=== PATIENT | male | born 1960 | race Caucasian/White ===

== ENCOUNTER 2016-04-27 07:30 | Day surgery (SDC) | payer OTHER ==
[~2016-04-27 07:30] MED LIST: HYDROmorphone HCL 2 MG/ML VIAL IV PRN; RINGERS SOLUTION,LACTATED 1,000 ML IV PRN
[2016-04-27] MEDS: RINGERS SOLUTION,LACTATED 1,000 ML IV ONE ×2 (08:06→10:35)
[2016-04-27] MEDS: ceFAZolin SODIUM 1 GM VIAL IV PRN (09:00)
[2016-04-27] MEDS: BUPIVACAINE HCL 50 ML VIAL IJ ONE (09:37)
--- NOTE | 2016-04-27 10:48 | OR ---
Operative Report - Dictated Report Narrative: Date: 04/27/2016 Surgeon: Avery Hernandez M.D. Automatic Chief: Joey Kraft PA-C Anesthesia: General plus local Preoperative diagnosis: Left closed medial malleolus nonunion Fracture. Postoperative diagnosis: Left closed medial malleolus nonunion Fracture. Procedure: 1. Open reduction internal fixation medial malleolus nonunion fracture. 2. Autologous calcaneal bone graft to nonunion site 3. Intra-operative interpretation of radiographs. Estimated blood loss: None Tourniquet time: 57 Minutes at 275 millimeters mercury Retained implants: [employer] 4.0 mm cannulated partially threaded cancellus screws in the medial malleolus x 54 mm 2 Specimens: None Complications: None Indications: Mr. Espinoza is a 55-year-old gentleman who injured his left ankle and proceeded to walk on this against our medical recommendation. We followed this over multiple weeks and noted progression of his fracture site as well as signs of nonunion with no progression of healing. We discussed options and he wished to proceed with bone grafting and open reduction internal fixation of the fracture. The risks, benefits, and treatment options were discussed with the patient. Risks were reviewed including , blood clots, nerve/tendon/blood vessel injury, malunion, nonunion, failure of implants, prominent implants, arthrosis, persistent pain, need for additional procedures. Procedure: After a timeout, anesthetic consisting of Ancef was administered. Beanbag was utilized in order bump the operative leg and a well-padded tourniquet was applied to the operative thigh. The leg was pre-scrubbed with chlorhexidine then prepped and draped in a standard sterile fashion. The extremity was exsanguinated and tourniquet was inflated. A curvilinear incision was made over the anterior medial aspect of the distal tibia. Care was taken to protect the saphenous vein and nerve. The medial malleolus fracture was identified and the soft tissues elevated off the bony edges. We then went to procure the calcaneal bone graft. A 1.5 cm incision was made over the posterior medial aspect of the calcaneus centered over the body of the calcaneal tuber. Soft tissues were elevated off the medial aspect of the calcaneus. A bone biopsy trephine was utilized in order to remove the medial cortex and the trephine was utilized as well as curved curettes in order to procure an appropriate amount of cancellus bone graft from the posterior aspect of the calcaneus. Once was felt that we had adequate bone graft we returned our attention to the medial malleolus. The nonunion site was cleaned of the scar tissue and it was noted there is periosteum within the fracture site. This was removed. The nonunion site was removed of the fibrous tissues and the calcaneal bone graft was impacted filling the defect. Two parallel guidewires were placed from the tip of the medial malleolus paralleling the anterior distal tibia within the confines of the distal tibial bone. These were measured, drilled, and sequentially tightened using 2 4.0 mm partially-threaded cancellus screws. This gave good stabilizations the medial malleolus fracture. The syndesmosis was stressed and was noted to be stable. The mortise was symmetrical and intact. The wounds were then thoroughly irrigated. Subcutaneous tissue was repaired over the implants utilizing 4-0 Vicryl. The skin was closed utilizing 4-0 nylon. Half percent Marcaine without epinephrine was infused around the saphenous vein the medial skin incision and the calcaneus wound. Xeroform, 4 x 4's, soft roll, and a well-padded AO splint was applied. Patient was then awoken and transferred to postanesthesia care in stable condition. All sponge, sharp, and instrument counts were correct prior to closing the wounds.
[2016-04-27] MEDS: oxyCODONE HCL/ACETAMINOPHEN 1 TAB TABLET PO PRN (12:09)
[2016-04-27 12:36] VITALS: BP 106/69
== END 2016-04-27 07:31 | disposition home or self-care (01) ==
LOC: AMB 07:30
PROVIDERS: ATTEND Orthopaedic Surgery
PROC: 0QSH04Z Reposition Left Tibia with Internal Fixation Device, Open Approach (ICD-10-PCS; principal; 2016-04-27 09:05)
DX: S82.52XK Displaced fracture of medial malleolus of left tibia, subsequent encounter for closed fracture with nonunion (principal); E11.9 Type 2 diabetes mellitus without complications; J44.9 Chronic obstructive pulmonary disease, unspecified; F17.200 Nicotine dependence, unspecified, uncomplicated; Z68.27 Body mass index [BMI] 27.0-27.9, adult

== ENCOUNTER 2016-04-28 14:36 | Emergency (ER) | payer OTHER ==
--- NOTE | 2016-04-28 15:11 | ERNOTE ---
Lower Extremity HPI - Narrative Date of Service: 04/28/16 - General Time Seen by Provider: 04/28/16 14:58 Source: patient, family Exam Limitations: no limitations - Immun/Allergies/Home Medications Immunizations: IMMUNIZATION HX History of Influenza Vaccine Yes Allergies/Adverse Reactions: Allergies Allergy/AdvReac Type Severity Reaction Status Date / Time No Known Allergies Allergy Verified 04/28/16 14:54 Home Medications: HOME MEDICATIONS Albuterol Sulfate [Ventolin Hfa] 2 puff IH Q4H PRN 08/05/15 [Last Taken Unknown] Tiotropium [place] [Spiriva] 1 cap IH DAILY 08/05/15 [Last Taken Unknown] Fluticasone/Salmeterol [Advair 100-50 Diskus] 1 puff IH BID 02/26/16 [Last Taken Unknown] Hydrocodone/Acetaminophen [Lortab 5-325 mg Tablet] 1 - 2 each PO TID PRN [Last Taken Unknown] oxyCODONE HCL/ACETAMINOPHEN [Percocet 5 MG/325 MG] 1 - 2 tab PO Q4H PRN #60 tab 04/27/16 [Last Taken Unknown] Cefuroxime Axetil [Ceftin] 500 mg PO BID #4 tab 04/28/16 [Last Taken Unknown] - History of Present Illness Narrative: Yesterday had two pins put into his ankle. Today, his foot smells bad and there is drainage on the back of his cast, so he thinks it is infected. No increase in pain and no fever. Occurred: this morning Method of Injury: Reports: other Associated Symptoms: Reports: none Subsequent Symptoms: Denies: sensory loss, numbness, motor loss Prior Treament: Reports: recently seen, treated by physician Review of Systems - Review of Systems Constitutional: Present: no symptoms reported EYE: Present: no symptoms reported ENT: Present: no symptoms reported Respiratory: Present: no symptoms reported Cardiology: Present: no symptoms reported Gastrointestinal/Abdominal: Present: no symptoms reported Genitourinary: Present: no symptoms reported Musculoskeletal: Present: See HPI Skin: Present: no symptoms reported Neurological: Present: no symptoms reported Endocrine: Present: no symptoms reported Hematologic/Lymphatic: Present: no symptoms reported Psych: Present: no symptoms reported All Other Systems: All systems neg except as marked - Patient's Past Medical History Patient History - Medical: Diabetes Type 2 Patient History - Cardiac/Respiratory: COPD Patient History - Cancer: No Hx of Cancer Patient History - Surgical Procedures: Cataracts, Other Patient History - Other: None - Family History Father Family History - Medical: , No pertinent hx Family History - Cardiac/Respiratory: No pertinent hx Family History - Cancer: No pertinent family hx Mother Family History - Medical: , No pertinent hx Family History - Cardiac/Respiratory: No pertinent hx Family History - Cancer: No pertinent family hx - Social History Living Situations: spouse Abuse History: No History of abuse Psych History: No pertinent hx Smoking Status: Current every day smoker Have you smoked in the past 12 months: Yes Alcohol Use: rarely Drug Use: none - Immunizations History of Influenza Vaccine: Yes Physical Exam - Physical Exam General Appearance: Present: wd/wn, alert, no apparent distress Eye Exam: Normal inspection: bilateral, PERRL: bilateral, EOMI: bilateral Ears, Nose, Throat: Present: normal ENT inspection, hearing grossly normal Neck: Present: normal inspection Respiratory: Present: no respiratory distress Cardiovascular/Chest: Present: regular rate, rhythm Gastrointestinal/Abdominal: Present: normal bowel sounds, nontender, nondistended, soft, no organomegaly Back Exam: Present: normal inspection Extremity Exam: Present: other - left lower leg in a cast......toes visible, and appear nl. some drainage stain on the back of the case. Neurological Exam: Present: alert, oriented, normal mood/affect, no motor/ sensory deficits Skin Exam: Present: normal color, warm/dry, cool/dry ED Progress - Results and Orders Patient's Lab Results:: I have reviewed the patient's lab results. - Vital Signs Patient's Vital Signs:: I have reviewed the patient's vital signs. Vital Signs: Vital Signs 04/28/16 14:52 Temperature 36.3 C L Pulse Rate 106 H Respiratory 14 Rate Blood Pressure 145/64 O2 Sat by Pulse 91 Oximetry - CT/Ultrasound CT/Ultrasound Narrative: spoke with Dr. Hernandez by phone. smell is normal due to drainage in cast. labs are reactive, not due to infection. wants to see him in the office on Saturday with his cam boot. - Progress/Reassessment Chief Complaint: Lower Extremity Pain/ Injury Departure Clinical Impression: Ankle fracture Qualifiers: Encounter type: subsequent encounter - Departure Disposition: Home self-care Condition: Good Instructions: Ankle Pain Additional Instructions: At 8 AM Saturday, call Dr. Hernandez's office for an appt Saturday with Dr. Hernandez. Bring your cam walking boot to the appt. Referrals: Luma Gaines FNP [Primary Care Provider] - Prescriptions: Cefuroxime Axetil [Ceftin] 500 mg PO BID #4 tab
[2016-04-28 15:34] LABS: Hematocrit 42.9 % (42.0-52.0); Hemoglobin 13.3 gm/dL (13.5-18.0); Mean Cell Volume 98.4 fl (78-100); Mean Corpuscular Hemoglobin 30.5 pg (27-31); Mean Platelet Volume 9.2 fl (6.0-9.5); Neutrophil # 10.2 K/mm3 (1.3-6.0); Neutrophil % 69.8 % (42-75.0); Platelet Count 251 K/mm3 (150-450); Red Blood Count 4.36 M/mm3 (4.7-6.0); Red Cell Distribution Width 13.2 % (11.5-14.0); White Blood Count 14.6 K/mm3 (4.0-10.5)
[2016-04-28 16:10] LABS: Albumin * 3.5 gm/dl (3.4-5.0); BUN/Creatinine Ratio 11.9 (9.0-21.6); Bilirubin, Total 0.2 mg/dL (0.0-1.1); Ca. Corrected For Albumin 9.1 mg/dL (8.4-10.2); Carbon Dioxide 38.3 mmol/L (24-32.6); Potassium 4.3 mmol/L (3.4-4.6); Total Protein 7.1 gm/dL (6.2-8.2)
[2016-04-28] MEDS: NORMAL SALINE 1,000 ML IV SCH ×3 (16:32→18:41)
[2016-04-28] MEDS ORDERED: HYDROcodone/ACETAMINOPHEN 1 EACH TABLET PO ONE (17:53)
[2016-04-28] MEDS ORDERED: HYDROcodone/ACETAMINOPHEN 1 EACH TABLET ONE (18:20)
[2016-04-28 20:20] VITALS: BP 141/79
== END 2016-04-28 20:20 | disposition home or self-care (01) ==
LOC: ER 14:36
DX: S82.892K Other fracture of left lower leg, subsequent encounter for closed fracture with nonunion (principal); F17.210 Nicotine dependence, cigarettes, uncomplicated; Z98.890 Other specified postprocedural states; X58.XXXD Exposure to other specified factors, subsequent encounter

== ENCOUNTER 2019-08-29 18:50 | Observation (INO) ==
[2019-08-29] MEDS ORDERED: ALBUTEROL SULFATE 2.5 MG/0.5 ML VIAL.NEB IH ONE (19:09)
[2019-08-29] MEDS ORDERED: METHYLPREDNISOLONE SOD SUCC/PF 125 MG/2 ML VIAL IV ONE (19:13)
--- NOTE | 2019-08-29 19:21 | ERNOTE ---
<Maximiliano Durand - Last Filed: 08/29/19 19:13> Dyspnea - Date Date of Service: 08/29/19 - General Presenting Symptoms: shortness of breath, difficulty of breathing, wheezing Time Seen by Provider: 08/29/19 19:03 Source: patient, EMS, EMS notes reviewed Exam Limitations: no limitations - Immun/Allergies/Home Medications Immunizations: IMMUNIZATION HX Immunizations Up to Date Yes History of Influenza Vaccine Yes Hx Pneumococcal Vaccination No Allergies/Adverse Reactions: Allergies acetaminophen [From Percocet] Allergy (Intermediate, Verified 09/23/17 07:24) respiratory issues oxycodone [From Percocet] Allergy (Intermediate, Verified 09/23/17 07:24) respiratory issues Home Medications: HOME MEDICATIONS albuterol sulfate 90 mcg/actuation aerosol inhaler 2 puff IH Q4H PRN #18 g 12/19/17 [Last Taken Unknown] guaifenesin 1,200 mg tablet, extended release 12 hr 1,200 mg PO Q12H #1 tab 07/07/18 [Last Taken Unknown] tiotropium bromide 18 mcg capsule with inhalation device 1 cap IH DAILY #30 inh 07/10/18 [Last Taken Unknown] Fluticasone Propionate [Flovent Hfa] 220 mg INH BID 09/17/18 [Last Taken Unknown] - History of Present Illness Narrative: patient presents to ed with c/o duspnea, knwon hx of copd became acutely sob earlier today, no reported fever or cough Severity: moderate Treatment [employer]: paramedics, oxygen Initiating event: Reports: unknown Frequency of episodes: Reports: frequent episodes Modifying Factors - (Improves): Reports: nothing Modifying Factors (Worsens): Reports: activity Associated Symptoms-Dyspnea: Reports: wheezing, lightheadedness Review of Systems - Review of Systems Constitutional: Present: See HPI, weakness, fatigue, malaise EYE: Present: no symptoms reported ENT: Present: no symptoms reported Respiratory: Present: See HPI, shortness of breath, orthopnea, wheezing Cardiology: Present: no symptoms reported Gastrointestinal/Abdominal: Present: no symptoms reported Genitourinary: Present: no symptoms reported Musculoskeletal: Present: no symptoms reported Skin: Present: no symptoms reported Neurological: Present: no symptoms reported Endocrine: Present: no symptoms reported Hematologic/Lymphatic: Present: no symptoms reported Medical History (Last Reviewed 06/06/20 @ 19:08 by Criss Mccartney RN) Tobacco abuse (Chronic) Onset Date: Unknown Diabetes mellitus type 2 in nonobese (Chronic) Onset Date: Unknown COPD (chronic obstructive pulmonary disease) (Chronic) Onset Date: Unknown Left ankle injury (Resolved) Onset Date: ~2015 Ankle fracture, left (Resolved) Onset Date: ~2016 Surgical History: Surgical History (Last Reviewed 08/29/19 @ 19:08 by Criss Mccartney RN) H/O elbow surgery Onset Date: Unknown left H/O foot surgery Onset Date: Unknown left History of incision and drainage Onset Date: ~02/12/10 abscess-Ivonne rectal by Dr davy Chase of cataract surgery Onset Date: ~2015 bilateral-2016 Status post ORIF of fracture of ankle Onset Date: ~04/27/16 ORIF left medial malleolus non union fx, autologous calcaneal bone graft to non union site Family History: Family History (Last Reviewed 08/29/19 @ 19:08 by Criss Mccartney RN) Brother COPD (chronic obstructive pulmonary disease) Father No problems noted. Mother No problems noted. Sister Diabetes Lung disease Social History: (Last Reviewed 08/29/19 @ 19:08 by Criss Mccartney RN) Social History: shelter: No Marital status: lives independently: No household members: spouse current occupational status: unemployed Highest education level completed: GED or equivalent Service: No Tobacco: Smoking Status: Current every day smoker Alcohol: alcohol intake: current Alcohol type: beer alcohol intake frequency: a few times a month Substance Use: substance use type: does not use Dietary Habits: caffeine: Yes caffeine comment: coffee in the morning Type: coffee Physical Exam - Physical Exam General Appearance: Present: moderate distress, anxious Head Exam: Present: normal inspection, no evidence of injury Eye Exam: Normal inspection: bilateral, PERRL: bilateral, EOMI: bilateral Ears, Nose, Throat: Present: normal ENT inspection, normal pharynx Neck: Present: normal inspection, nontender Respiratory: Present: respiratory distress, rales, rhonchi, wheezing Cardiovascular/Chest: Present: tachycardia Gastrointestinal/Abdominal: Present: normal bowel sounds, nontender, nondistended, soft, no organomegaly Back Exam: Present: normal inspection, normal range of motion, no CVA tenderness, no vertebral tenderness Extremity Exam: Present: normal inspection, non-tender, normal range of motion, no edema Neurological Exam: Present: alert, oriented, normal mood/affect, no motor/ sensory deficits Skin Exam: Present: normal color, warm/dry Lymphatic Exam: Present: no adenopathy Progress - Vital Signs Vital Signs: Vital Signs 08/29/19 19:04 08/29/19 19:09 Temperature 36.9 C Pulse Rate 135 H 135 H Respiratory Rate 18 Blood Pressure 198/94 H O2 Sat by Pulse Oximetry 100 - EKG EKG #1 EKG: supraventricular tachycardia - Progress/Reassessment Chief Complaint: Dyspnea - Transfer of Care Physician Sign Out: Maximiliano Durand Receiving Physician: Panchito Bhatt Expected Disposition: Admit Plan - Plan Plan: to admit Departure Clinical Impression: Acute exacerbation of chronic obstructive pulmonary disease Acute on chronic respiratory failure Qualifiers: Respiratory failure complication: hypercapnia Qualified Code(s): J96.22 - Acute and chronic respiratory failure with hypercapnia - Departure Disposition: Short Term Hospital Inpatient Condition: Serious <Panchito Bhatt - Last Filed: 08/29/19 21:42> Dyspnea - Immun/Allergies/Home Medications Immunizations: IMMUNIZATION HX Immunizations Up to Date Yes History of Influenza Vaccine Yes Hx Pneumococcal Vaccination No Medical History (Last Reviewed 08/29/19 @ 19:08 by Criss Mccartney RN) Tobacco abuse (Chronic) Onset Date: Unknown Diabetes mellitus type 2 in nonobese (Chronic) Onset Date: Unknown COPD (chronic obstructive pulmonary disease) (Chronic) Onset Date: Unknown Left ankle injury (Resolved) Onset Date: ~2015 Ankle fracture, left (Resolved) Onset Date: ~2015 Surgical History: Surgical History (Last Reviewed 08/29/19 @ 19:08 by Criss Mccartney RN) H/O elbow surgery Onset Date: Unknown left H/O foot surgery Onset Date: Unknown left History of incision and drainage Onset Date: ~02/12/10 abscess-Ivonne rectal by Dr davy Chase of cataract surgery Onset Date: ~2015 bilateral-2016 Status post ORIF of fracture of ankle Onset Date: ~04/27/16 ORIF left medial malleolus non union fx, autologous calcaneal bone graft to non union site Family History: Family History (Last Reviewed 08/29/19 @ 19:08 by Criss Mccartney RN) Brother COPD (chronic obstructive pulmonary disease) Father No problems noted. Mother No problems noted. Sister Diabetes Lung disease Social History: (Last Reviewed 08/29/19 @ 19:08 by Criss Mccartney RN) Social History: shelter: No Marital status: lives independently: No household members: spouse current occupational status: unemployed Highest education level completed: GED or equivalent Service: No Tobacco: Smoking Status: Current every day smoker Alcohol: alcohol intake: current Alcohol type: beer alcohol intake frequency: a few times a month Substance Use: substance use type: does not use Dietary Habits: caffeine: Yes caffeine comment: coffee in the morning Type: coffee Progress - Results and Orders Patient's Lab Results:: I have reviewed the patient's lab results. - Vital Signs Patient's Vital Signs:: I have reviewed the patient's vital signs. Vital Signs: Vital Signs 08/29/19 19:04 08/29/19 19:09 08/29/19 19:12 Temperature 36.9 C Pulse Rate 135 H 135 H 131 H Respiratory Rate 18 17 Blood Pressure 198/94 H 125/78 O2 Sat by Pulse Oximetry 100 100 08/29/19 19:34 Temperature Pulse Rate 130 H Respiratory Rate 16 Blood Pressure O2 Sat by Pulse Oximetry 100 - EKG EKG #1 EKG: supraventricular tachycardia, nonspecific ST T wave changes EKG read: Interp. by me - X-Ray X-Ray #1 X-Ray: chest Interpretation: Interp. by me X-ray Comments: ? RML infiltrate and hyperinflation of the lungs. Plan - Plan Plan: Review of initial ABG, CXR and CBC shows concern for possible pneumonia, but definite respiratory failure with hypercapnea. (Patient is on his usual 4L NC and satting at 100%. Concern for RML inflitrate so will dose rocephin here in ER. COVID19 is pending. If negative will consider CPAP. If positive, may need to transfer out as he will be at risk for ICU/intubation. Patient is COVID negative after reassessment patient appears to be comfortable on his current 4 L nasal cannula. Respiratory rates have decreased and improved since he received his IV steroids and his insulin and his Rocephin. Given his significant hypercapnia I do believe he needs to be admitted and treated with possible reassessment of an ABG tomorrow to make sure that his PCO2 is improving. I do not believe he needs any mechanical intervention such as BiPAP at this time. Case was discussed with Dr. Rubio who is in agreement for admission.
[2019-08-29 19:56] LABS: Hematocrit 42.2 % (42.0-52.0); Hemoglobin 12.6 gm/dL (13.5-18.0); Mean Cell Volume 97.2 fl (78-100); Mean Corpuscular Hgb Conc 29.9 g/dl (32-36); Mean Platelet Volume 9.6 fl (8-11.3); Neutrophil # 11.8 K/mm3 (1.3-6.0); Neutrophil % 86.5 % (42-75.0); Platelet Count 383 K/mm3 (150-450); Red Blood Count 4.34 M/mm3 (4.7-6.0); Red Cell Distribution Width 13.1 % (11.5-14.0); White Blood Count 13.7 K/mm3 (4.0-10.5)
[2019-08-29] MEDS ORDERED: cefTRIAXone SODIUM 1,000 MG/100 ML BAG IV ONE (20:08)
[2019-08-29 20:21] LABS: Troponin I Less than 0.017 ng/mL (0.00-0.10)
[2019-08-29 20:22] LABS: ALT 34 U/L (19-67); AST 15 U/L (0-48); Albumin * 3.5 gm/dl (3.4-5.0); Alkaline Phosphatase * 109 U/L (50-170); Anion Gap 5.8 mmol/L (6.8-13.8); BNP * 73 pg/mL (5-175); BUN/Creatinine Ratio 18.8 (9.0-21.6); Bilirubin, Total 0.3 mg/dL (0.0-1.1); Blood Urea Nitrogen 16 mg/dL (6-23); Ca. Corrected For Albumin 9.1 mg/dL (8.4-10.2); Carbon Dioxide 41.2 mmol/L (24-32.6); Chloride 96 mmol/L (97-106); Glucose * 368 mg/dL (70-110); Sodium 139 mmol/L (132-142); Total Protein 7.6 gm/dL (6.2-8.2)
[2019-08-29] MEDS ORDERED: INSULIN LISPRO 100 UNITS/ML VIAL SC ONE (20:25)
[2019-08-29] MEDS: ENOXAPARIN SODIUM 40 MG/0.4 ML SYRG SC SCH (22:39)
[2019-08-29] MEDS: METHYLPREDNISOLONE SOD SUCC/PF 125 MG/2 ML VIAL IV SCH (22:39)
[2019-08-29] MEDS: ALBUTEROL SULFATE/IPRATROPIUM 3 ML NEBU IH SCH (22:54)
[2019-08-30] MEDS: ALBUTEROL SULFATE/IPRATROPIUM 3 ML NEBU IH SCH ×7 (01:54→22:28)
[2019-08-30] MEDS: INSULIN LISPRO 100 UNITS/ML VIAL SC SCH ×4 (06:33→20:50)
[2019-08-30 07:04] LABS: Hematocrit 41.1 % (42.0-52.0); Hemoglobin 12.4 gm/dL (13.5-18.0); Mean Cell Volume 96.5 fl (78-100); Mean Corpuscular Hemoglobin 29.1 pg (27-31); Mean Corpuscular Hgb Conc 30.2 g/dl (32-36); Neutrophil # 11.7 K/mm3 (1.3-6.0); Neutrophil % 94.7 % (42-75.0); Platelet Count 353 K/mm3 (150-450); Red Blood Count 4.26 M/mm3 (4.7-6.0); Red Cell Distribution Width 13.1 % (11.5-14.0); White Blood Count 12.4 K/mm3 (4.0-10.5)
[2019-08-30] MEDS: METHYLPREDNISOLONE SOD SUCC/PF 125 MG/2 ML VIAL IV SCH ×2 (07:15→18:31)
[2019-08-30 07:16] LABS: Hemoglobin A1C 9.8 % (4.00-6.0)
[2019-08-30 07:17] LABS: Albumin * 3.2 gm/dl (3.4-5.0); Anion Gap 8.2 mmol/L (6.8-13.8); BUN/Creatinine Ratio 18.8 (9.0-21.6); Bilirubin, Total 0.4 mg/dL (0.0-1.1); Ca. Corrected For Albumin 9.4 mg/dL (8.4-10.2); Calcium * 9.1 mg/dL (7.9-10.9); Carbon Dioxide 38.8 mmol/L (24-32.6); Total Protein 7.4 gm/dL (6.2-8.2)
--- NOTE | 2019-08-30 08:33 | HP ---
Chief Complaint - Chief Complaint Date of Service: 08/30/19 Time of Service: 08:33 Chief Complaint: difficulty breathing History of Present Illness: Patient with past medical history of COPD on 4 L oxygen at baseline presented to the ER with shortness of breath. He has been out of his medications for about 6 months because he no longer has Medicaid and cannot afford them. The shortness of breath has been present for several weeks. He has been coughing up phlegm, which is not normal for him. Denies fevers or sick contacts. In the ED, COVID test was negative. Arterial blood gas showed elevated CO2 of 68, and respiratory acidosis with pH of 7.30. He was given 125 mg Solu-Medrol, Rocephin, azithromycin and his ease of breathing improved. This morning on my assessment, he reports still not being at his baseline. He was told more than 20 years ago that he might have had diabetes, but was not on medicines for it. A1c this morning was 9.8, up from previous several levels of around 6.3. He admits to drinking probably too much raspberry tea lately. Medical History (Last Reviewed 08/29/19 @ 22:07 by Duong Rosario RN) Tobacco abuse (Chronic) Onset Date: Unknown Diabetes mellitus type 2 in nonobese (Chronic) Onset Date: Unknown COPD (chronic obstructive pulmonary disease) (Chronic) Onset Date: Unknown Left ankle injury (Resolved) Onset Date: ~2015 Ankle fracture, left (Resolved) Onset Date: ~2015 Surgical History: Surgical History (Last Reviewed 08/29/19 @ 22:07 by Duong Rosario RN) H/O elbow surgery Onset Date: Unknown left H/O foot surgery Onset Date: Unknown left History of incision and drainage Onset Date: ~02/12/10 abscess-Ivonne rectal by Dr davy Chase of cataract surgery Onset Date: ~2015 bilateral-2016 Status post ORIF of fracture of ankle Onset Date: ~04/27/16 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 Mother No problems noted. Sister Diabetes Lung disease Social History: (Last Reviewed 08/29/19 @ 22:07 by Duong Rosario RN) Social History: senior care: No Marital status: lives independently: No household members: spouse current occupational status: unemployed Highest education level completed: GED or equivalent Service: No Tobacco: Smoking Status: Current every day smoker Alcohol: alcohol intake: current Alcohol type: beer alcohol intake frequency: a few times a month Substance Use: substance use type: does not use Dietary Habits: caffeine: Yes caffeine comment: coffee in the morning Type: coffee Review Of Systems (GEN) - Review of Systems Generalized/Overall Review: Absent: Fever Respiratory: Present: Cough, Shortness of Breath, Wheezing, Other - increased phlegm Abdominal: Absent: Abdominal Pain Genitourinary: Present: No Symptoms Reported Musculoskeletal: Present: No Symptoms Reported Neurological: Present: No Symptoms Reported Skin: Present: Bruising - from IV/lab attempts, Other Immunizations: IMMUNIZATION HX Immunizations Up to Date Yes History of Influenza Vaccine Yes Hx Pneumococcal Vaccination No Allergies/Adverse Reactions: Allergies Allergy/AdvReac Type Severity Reaction Status Date / Time acetaminophen [From Percocet] Allergy Intermediate respiratory Verified 08/29/19 22:07 issues oxycodone [From Percocet] Allergy Intermediate respiratory Verified 08/29/19 22:07 issues Home Medications: HOME MEDICATIONS albuterol sulfate 90 mcg/actuation aerosol inhaler 2 puff IH Q4H PRN #18 g 12/19/17 [Last Taken Unknown] guaifenesin 1,200 mg tablet, extended release 12 hr 1,200 mg PO Q12H #1 tab 07/07/18 [Last Taken Unknown] tiotropium bromide 18 mcg capsule with inhalation device 1 cap IH DAILY #30 inh 07/10/18 [Last Taken Unknown] Fluticasone Propionate [Flovent Hfa] 220 mg INH BID 09/17/18 [Last Taken Unknown] Exam - Exam Vital Signs: Vital Signs - Last Taken Temp 36.6 C 08/30/19 06:29 Pulse 108 H 08/30/19 06:43 Resp 18 08/30/19 06:29 BP 133/81 08/30/19 06:29 Pulse Ox 96 08/30/19 06:29 Constitutional: Present: Alert, Oriented x3, Cooperative, No distress - mild increased work of breathing, Looks Older than stated age Respiratory: Present: no respiratory distress, wheezing - on 4 L O2 via nasal canula Cardiovascular/Chest: Present: tachycardia Abdomen: Present: soft, nontender Extremity: Absent: lower extremity edema Neurologic: Present: alert, normal mood/affect Appearance: Present: appropriate insight Eye contact: Present: cooperative Diagnostic Studies: Abnormal Lab Results 08/29/19 08/29/19 08/29/19 Range/Units 19:15 19:30 19:50 WBC 13.7 H (4.0-10.5) K/mm3 RBC 4.34 L (4.7-6.0) M/mm3 Hgb 12.6 L (13.5-18.0) gm/dL Hct (42.0-52.0) % MCHC 29.9 L (32-36) g/dl Immature Gran % (Auto) 0.80 H (0.001-0.429) % Immature Gran # (Auto) 0.11 H (0.000-0.0310) K/mm3 Neutrophils % 86.5 H (42-75.0) % Lymphocytes % 6.5 L (20-51) % Neutrophils # 11.8 H (1.3-6.0) K/mm3 Lymphocytes # 0.89 L (1.5-3.5) k/mm3 pCO2 68.2 H (35.0-48.0) mmHg HCO3 33.0 H (21.0-28.0) mmol/L Total CO2 35.0 H (19.0-24.0) mmol/L Base Excess 4.8 H (-2.0-3.0) mmol/L ABG pH 7.30 L (7.35-7.45) Plasma Sodium 143 H (130-142) mmol/L Potassium (3.4-4.6) mmol/L Chloride 96 L (97-106) mmol/L Carbon Dioxide 41.2 H (24-32.6) mmol/L Anion Gap 5.8 L (6.8-13.8) mmol/L Random Glucose 368 H (70-110) mg/dL Hemoglobin A1c (4.00-6.0) % Albumin (3.4-5.0) gm/dl 08/30/19 08/30/19 08/30/19 Range/Units 07:00 07:00 07:00 WBC 12.4 H (4.0-10.5) K/mm3 RBC 4.26 L (4.7-6.0) M/mm3 Hgb 12.4 L (13.5-18.0) gm/dL Hct 41.1 L (42.0-52.0) % MCHC 30.2 L (32-36) g/dl Immature Gran % (Auto) 1.10 H (0.001-0.429) % Immature Gran # (Auto) 0.13 H (0.000-0.0310) K/mm3 Neutrophils % 94.7 H (42-75.0) % Lymphocytes % 3.6 L (20-51) % Neutrophils # 11.7 H (1.3-6.0) K/mm3 Lymphocytes # 0.44 L (1.5-3.5) k/mm3 pCO2 (35.0-48.0) mmHg HCO3 (21.0-28.0) mmol/L Total CO2 (19.0-24.0) mmol/L Base Excess (-2.0-3.0) mmol/L ABG pH (7.35-7.45) Plasma Sodium (130-142) mmol/L Potassium 5.0 H D (3.4-4.6) mmol/L Chloride 95 L (97-106) mmol/L Carbon Dioxide 38.8 H (24-32.6) mmol/L Anion Gap (6.8-13.8) mmol/L Random Glucose 341 H (70-110) mg/dL Hemoglobin A1c 9.8 H (4.00-6.0) % Albumin 3.2 L (3.4-5.0) gm/dl Laboratory Results WBC 12.4 K/mm3 (4.0-10.5) H 08/30/19 07:00 RBC 4.26 M/mm3 (4.7-6.0) L 08/30/19 07:00 Hgb 12.4 gm/dL (13.5-18.0) L 08/30/19 07:00 Hct 41.1 % (42.0-52.0) L 08/30/19 07:00 MCV 96.5 fl (78-100) 08/30/19 07:00 MCH 29.1 pg (27-31) 08/30/19 07:00 MCHC 30.2 g/dl (32-36) L 08/30/19 07:00 RDW 13.1 % (11.5-14.0) 08/30/19 07:00 Plt Count 353 K/mm3 (150-450) 08/30/19 07:00 MPV 9.0 fl (8-11.3) 08/30/19 07:00 Immature Gran % (Auto) 1.10 % (0.001-0.429) H 08/30/19 07:00 Immature Gran # (Auto) 0.13 K/mm3 (0.000-0.0310) H 08/30/19 07:00 Neutrophils % 94.7 % (42-75.0) H 08/30/19 07:00 Lymphocytes % 3.6 % (20-51) L 08/30/19 07:00 Monocytes % 0.5 % (0.0-9) 08/30/19 07:00 Eosinophils % 0.0 % (0.0-3.0) 08/30/19 07:00 Basophils % 0.1 % (0.0-1.0) 08/30/19 07:00 Nucleated RBC % 0.0 k/mm3 (0-1) 08/30/19 07:00 Neutrophils # 11.7 K/mm3 (1.3-6.0) H 08/30/19 07:00 Lymphocytes # 0.44 k/mm3 (1.5-3.5) L 08/30/19 07:00 Monocytes # 0.1 k/mm3 (0.0-1.0) 08/30/19 07:00 Eosinophils # 0.0 k/mm3 (0.0-0.7) 08/30/19 07:00 Absolute Basophils 0.0 k/mm3 (0.0-0.1) 08/30/19 07:00 pCO2 68.2 mmHg (35.0-48.0) H 08/29/19 19:15 pO2 93.6 mmHg (83.0-108.0) 08/29/19 19:15 HCO3 33.0 mmol/L (21.0-28.0) H 08/29/19 19:15 Total CO2 35.0 mmol/L (19.0-24.0) H 08/29/19 19:15 Base Excess 4.8 mmol/L (-2.0-3.0) H 08/29/19 19:15 ABG pH 7.30 (7.35-7.45) L 08/29/19 19:15 ABG O2 Sat (Measured) 96.2 % (94.0-98.0) 08/29/19 19:15 Sodium 137 mmol/L (132-142) 08/30/19 07:00 Plasma Sodium 141 mmol/L (130-142) 08/30/19 07:00 Potassium 5.0 mmol/L (3.4-4.6) H D 08/30/19 07:00 Chloride 95 mmol/L (97-106) L 08/30/19 07:00 Carbon Dioxide 38.8 mmol/L (24-32.6) H 08/30/19 07:00 Anion Gap 8.2 mmol/L (6.8-13.8) 08/30/19 07:00 BUN 18 mg/dL (6-23) 08/30/19 07:00 Creatinine 0.96 mg/dL (0.4-1.4) 08/30/19 07:00 Est GFR (Non-Af Amer) 86 mL/min (60-130) 08/30/19 07:00 BUN/Creatinine Ratio 18.8 (9.0-21.6) 08/30/19 07:00 Random Glucose 341 mg/dL (70-110) H 08/30/19 07:00 Mean Blood Glucose 240 mg/dL 08/30/19 07:00 Hemoglobin A1c 9.8 % (4.00-6.0) H 08/30/19 07:00 Lactic Acid, Venous 1.5 mmol/L (0.4-2.0) 08/29/19 19:50 Calcium 9.1 mg/dL (7.9-10.9) 08/30/19 07:00 Calcium Adj for Albumin 9.4 mg/dL (8.4-10.2) 08/30/19 07:00 Total Bilirubin 0.4 mg/dL (0.0-1.1) 08/30/19 07:00 AST 20 U/L (0-48) 08/30/19 07:00 ALT 37 U/L (19-67) 08/30/19 07:00 Alkaline Phosphatase 105 U/L (50-170) 06/07/20 07:00 Troponin I Less than 0.017 ng/mL (0.00-0.10) 08/29/19 19:30 B-Natriuretic Peptide 73 pg/mL (5-175) 08/29/19 19:30 Total Protein 7.4 gm/dL (6.2-8.2) 08/30/19 07:00 Albumin 3.2 gm/dl (3.4-5.0) L 08/30/19 07:00 SARS-CoV-2 (PCR) Not detected (ND) 08/29/19 19:45 Assessment/Plan - Assessment/Plan (1) Acute on chronic respiratory failure Assessment: He has a baseline diagnosis of COPD and has not been able to afford his Spiriva for several months. He denies recent fever, chest pain. Has been started on Rocephin and azithromycin, and will continue. He was given 125 mg IV Solu- Medrol in the ED. Since he still has some wheezing, and I anticipate he has significant pulmonary disease since he uses 4 L oxygen at all times, will continue IV Solu-Medrol today. We will decrease frequency from every 8 hours to every 12 hours. May potentially be able to change to p.o. prednisone tomorrow. Possible DC tomorrow. He tested negative for COVID. Since he is COVID negative, okay to do nebulizer treatments. I have ordered a chronic care management referral in an effort to help him get resources. He states he has application for Medicaid but has not yet filled out. We will refill his Ventolin on discharge, as I believe this is one of the more affordable inhalers. He reports having been hospitalized for this in the past, so helping him get his inhalers will prevent future hospitalizations. Problem: Acute Qualifiers: Respiratory failure complication: hypercapnia Qualified Code(s): J96.22 - Acute and chronic respiratory failure with hypercapnia (2) Acute exacerbation of chronic obstructive pulmonary disease Assessment: ABGs done in the ER showed respiratory acidosis, with elevated PCO2 of 68 and pH of 7.3. He clinically is improved. CO2 on his CMP has improved slightly from 41.2-38.8. No need to recheck blood gases unless he were to worsen. Problem: Acute (3) Uncontrolled diabetes mellitus Assessment: Lowest blood sugar thus far is been 289. A1c today was 9.8%. Previous A1c in 2018 was 6.2. Will start 10 units of Lantus, and continue sliding scale insulin. Since we know he has a diagnosis of diabetes, he should be on a statin and an NAZARIO inhibitor or ARB. However he reports having had difficulty affording his medications. Do not want to overwhelm him with starting multiple medications at once. He will be staying in the hospital tonight, which will help me figure out an insulin regimen for discharge. Will defer statin and NAZARIO- I/ARB to outpatient management. Problem: Acute Qualifiers: Diabetes mellitus type: type 2 Glycemic state: with hyperglycemia Qualified Code(s): E11.65 - Type 2 diabetes mellitus with hyperglycemia
[2019-08-30] MEDS ORDERED: ALBUTEROL SULFATE 2.5 MG/0.5 ML VIAL.NEB IH PRN (08:49)
[2019-08-30] MEDS ORDERED: AZITHROMYCIN 250 MG TABLET PO SCH (09:00)
[2019-08-30] MEDS ORDERED: INSULIN GLARGINE,HUM.REC.ANLOG 100 UNITS/ML VIAL SC SCH (09:15)
[2019-08-30] MEDS: DOXYCYCLINE HYCLATE 100 MG TABLET PO SCH ×2 (09:37→20:50)
[2019-08-30] MEDS: BUDESONIDE 0.5 MG/2 ML VIAL.NEB IH SCH ×2 (12:57→18:18)
[2019-08-30] MEDS: ENOXAPARIN SODIUM 40 MG/0.4 ML SYRG SC SCH (20:51)
[2019-08-31] MEDS: ALBUTEROL SULFATE/IPRATROPIUM 3 ML NEBU IH SCH ×3 (02:52→10:08)
[2019-08-31] MEDS: BUDESONIDE 0.5 MG/2 ML VIAL.NEB IH SCH (06:03)
[2019-08-31 06:49] LABS: Albumin * 3.2 gm/dl (3.4-5.0); Anion Gap 1.5 mmol/L (6.8-13.8); BUN/Creatinine Ratio 27.7 (9.0-21.6); Bilirubin, Total 0.3 mg/dL (0.0-1.1); Ca. Corrected For Albumin 9.5 mg/dL (8.4-10.2); Calcium * 9.2 mg/dL (7.9-10.9); Carbon Dioxide 42.9 mmol/L (24-32.6); Potassium 4.4 mmol/L (3.4-4.6); Total Protein 6.9 gm/dL (6.2-8.2)
[2019-08-31] MEDS: METHYLPREDNISOLONE SOD SUCC/PF 125 MG/2 ML VIAL IV SCH (06:58)
[2019-08-31] MEDS: INSULIN LISPRO 100 UNITS/ML VIAL SC SCH (06:59)
[2019-08-31] MEDS ORDERED: INSULIN GLARGINE,HUM.REC.ANLOG 100 UNITS/ML VIAL SC SCH (09:00)
[2019-08-31] MEDS ORDERED: TIOTROPIUM BROMIDE 5 CAP INHALER IH SCH (09:00)
[2019-08-31] MEDS: DOXYCYCLINE HYCLATE 100 MG TABLET PO SCH (09:38)
--- NOTE | 2019-08-31 10:31 | DS ---
(1) Acute on chronic respiratory failure Problem: Resolved Qualifiers: Respiratory failure complication: hypercapnia Qualified Code(s): J96.22 - Acute and chronic respiratory failure with hypercapnia (2) Acute exacerbation of chronic obstructive pulmonary disease Problem: Resolved (3) Uncontrolled diabetes mellitus Problem: Chronic Qualifiers: Diabetes mellitus type: type 2 Glycemic state: with hyperglycemia Qualified Code(s): E11.65 - Type 2 diabetes mellitus with hyperglycemia Date of Discharge:: 08/31/19 Hospital Course: Patient with past medical history of COPD on 4 L oxygen at baseline presented to the ER with shortness of breath. He has been out of his medications for about 6 months because he no longer has Medicaid and cannot afford them. The shortness of breath has been present for several weeks. He has been coughing up phlegm, which is not normal for him. Denies fevers or sick contacts. In the ED, COVID test was negative. Arterial blood gas showed elevated CO2 of 68, and respiratory acidosis with pH of 7.30. He was given 125 mg Solu-Medrol, Rocephin, azithromycin in the ED and his ease of breathing improved. He weaned to his home 4 L O2. For the duration of his stay, he was given bid IV solumedrol, and will change to prednisone on DC. He was treated with rocephin and doxycycline, and will DC with cefdinir and continue doxycycline. He felt comfortable leaving on the day of DC. His glucose was 368 in the ED, and A1C was 9.8. He was started on 10 U lantus, increased to 20 U on the day of DC. He also was started on sliding scale insulin. His insulin regimen will likely need to be tweaked in the oncoming weeks. Discussed with him that his glucose may be higher now due to the steroids. He should also be started on an NAZARIO-I/ARB for renal protective benefit, and a statin to reduce his cardiovascular risk. Will send metformin for him to start. To not overwhelm him with too many meds at once, these were not started during this admission. (Will send diabetic and nebulizer supplies through the ambulatory option.) With his difficulty obtaining meds, referral placed to our chronic care management team in the clinic. He has COPD and diabetes, both of which will be lifelong diagnoses. Procedures Performed: none Results and Findings: Pending Mircobiology Results 08/29/19 19:50 Blood Blood Culture - Preliminary NO GROWTH 24 HOURS 08/29/19 19:30 Blood Blood Culture - Preliminary NO GROWTH 24 HOURS Lab Pending Results 08/29/19 19:15: pCO2 68.2 H, pO2 93.6, HCO3 33.0 H, Total CO2 35.0 H, Base Excess 4.8 H, ABG pH 7.30 L, ABG O2 Sat (Measured) 96.2 08/29/19 19:30: Sodium 139, Plasma Sodium 143 H, Potassium 4.0, Chloride 96 L, Carbon Dioxide 41.2 H, Anion Gap 5.8 L, BUN 16, Creatinine 0.85, Est GFR (Non-Af Amer) 98 D, BUN/Creatinine Ratio 18.8, Random Glucose 368 H, Calcium 9.0, Calcium Adj for Albumin 9.1, Total Bilirubin 0.3, AST 15, ALT 34, Alkaline Phosphatase 109, Troponin I Less than 0.017, B-Natriuretic Peptide 73, Total Protein 7.6, Albumin 3.5 08/29/19 19:45: SARS-CoV-2 (PCR) Not detected 08/29/19 19:50: WBC 13.7 H, RBC 4.34 L, Hgb 12.6 L, Hct 42.2, MCV 97.2, MCH 29.0, MCHC 29.9 L, RDW 13.1, Plt Count 383, MPV 9.6, Immature Gran % (Auto) 0.80 H, Immature Gran # (Auto) 0.11 H, Neutrophils % 86.5 H, Lymphocytes % 6.5 L, Monocytes % 5.3, Eosinophils % 0.7, Basophils % 0.2, Nucleated RBC % 0.0, Neutrophils # 11.8 H, Lymphocytes # 0.89 L, Monocytes # 0.7, Eosinophils # 0.1, Absolute Basophils 0.0 08/29/19 19:50: Lactic Acid, Venous 1.5 08/30/19 07:00: WBC 12.4 H, RBC 4.26 L, Hgb 12.4 L, Hct 41.1 L, MCV 96.5, MCH 29.1, MCHC 30.2 L, RDW 13.1, Plt Count 353, MPV 9.0, Immature Gran % (Auto) 1.10 H, Immature Gran # (Auto) 0.13 H, Neutrophils % 94.7 H, Lymphocytes % 3.6 L, Monocytes % 0.5, Eosinophils % 0.0, Basophils % 0.1, Nucleated RBC % 0.0, Neutrophils # 11.7 H, Lymphocytes # 0.44 L, Monocytes # 0.1, Eosinophils # 0.0, Absolute Basophils 0.0 08/30/19 07:00: Sodium 137, Plasma Sodium 141, Potassium 5.0 H D, Chloride 95 L, Carbon Dioxide 38.8 H, Anion Gap 8.2, BUN 18, Creatinine 0.96, Est GFR (Non-Af Amer) 86, BUN/Creatinine Ratio 18.8, Random Glucose 341 H, Calcium 9.1, Calcium Adj for Albumin 9.4, Total Bilirubin 0.4, AST 20, ALT 37, Alkaline Phosphatase 105, Total Protein 7.4, Albumin 3.2 L 08/30/19 07:00: Mean Blood Glucose 240, Hemoglobin A1c 9.8 H 08/31/19 06:30: Sodium 136, Plasma Sodium 139, Potassium 4.4, Chloride 96 L, Carbon Dioxide 42.9 H, Anion Gap 1.5 L, BUN 23, Creatinine 0.83, Est GFR (Non-Af Amer) 101, BUN/Creatinine Ratio 27.7 H, Random Glucose 286 H, Calcium 9.2, Calcium Adj for Albumin 9.5, Total Bilirubin 0.3, AST 14, ALT 35, Alkaline Phosphatase 89, Total Protein 6.9, Albumin 3.2 L Discharge Location: Home Disposition: Home self-care Condition: Serious Discharge Activity: Activity as tolerated Discharge Diet: Consistent carbs Referrals: Luma Gaines FNP [Primary Care Provider] - One Week Prescriptions (Any new or edited meds): Insulin NPH Hum/Reg Insulin Hm [Humulin 70-30] 10 unit SC BID #1 vial Transmission Status: Pending to [facility] Insulin Regular, Human [Humulin R] See Protocol SC TIDWM #1 vial Transmission Status: Pending to [facility] metFORMIN HCL [Metformin HCl] 500 mg PO BID #60 tab Transmission Status: Pending to [facility] Doxycycline Monohydrate [Monodox] 100 mg PO BID #7 cap Transmission Status: Pending to [facility] predniSONE [Prednisone] 2 tab PO DAILY #7 tab Transmission Status: Pending to [facility] Complete Home Medications List: Complete Home Medication List: albuterol sulfate 90 mcg/actuation aerosol inhaler 2 puff IH Q4H PRN #18 g 12/19/17 guaifenesin 1,200 mg tablet, extended release 12 hr 1,200 mg PO Q12H #1 tab 07/07/18 tiotropium bromide 18 mcg capsule with inhalation device 1 cap IH DAILY #30 inh 07/10/18 Fluticasone Propionate [Flovent Hfa] 220 mg INH BID 09/17/18 Doxycycline Monohydrate [Monodox] 100 mg PO BID #7 cap 08/31/19 Insulin NPH Hum/Reg Insulin Hm [Humulin 70-30] 10 unit SC BID #1 vial 08/31/19 Insulin Regular, Human [Humulin R] See Protocol SC TIDWM #1 vial 08/31/19 metFORMIN HCL [Metformin HCl] 500 mg PO BID #60 tab 08/31/19 predniSONE [Prednisone] 2 tab PO DAILY #7 tab 08/31/19 Amb Orders for Discharge: Chronic Care Management Referral Time Frame: 1 Week, Facility: [facility], Location: Nursing Units Forms: Patient Portal Registration
[2019-08-31 11:23] VITALS: BP 147/82
== END 2019-08-31 11:40 | disposition home or self-care (01) ==
LOC: ER 18:50 → INTOOBSV 21:11 → MS 21:11
PROVIDERS: ADMIT Family Medicine; ATTEND Family Medicine
DX: J96.22 Acute and chronic respiratory failure with hypercapnia; R00.0 Tachycardia, unspecified; E87.5 Hyperkalemia; E11.65 Type 2 diabetes mellitus with hyperglycemia; Z99.81 Dependence on supplemental oxygen; J44.1 Chronic obstructive pulmonary disease with (acute) exacerbation; F17.210 Nicotine dependence, cigarettes, uncomplicated
CPT/HCPCS: 36415; 36600; 71010; 71045; 80053; 82803; 83036; 83519; 83605; 83880; 84484; 85025; 87040; 93005; 94640; 94664; 94760; 96365; 96375; 99284; 99285